=== PATIENT | female | born 1970 | race Caucasian/White ===

== ENCOUNTER 2021-02-14 19:39 | Emergency (ER) | payer MEDICAID, SELFPAY ==
[~2021-02-14] VITALS: Ht 137.2 cm; Wt 40.8 kg
--- NOTE | 2021-02-14 19:39 | NUR ---
Placed in room 06 . Placed on monitor tech, blood pressure machine and pulse oximeter. To gown for exam. Side rails up. Report given to LUBNA BRAXTON
--- NOTE | 2021-02-14 19:40 | NUR ---
ER Dr. Sanon at bedside examining patient.
--- NOTE | 2021-02-14 19:41 | NUR ---
Patient BIB by [facility] from home. C/O syncope x today. Per reported, patient had one episode of syncope after had bowel movement, her head hit the floor (possible). Patient present with pale, small laceration forehead, denies pain this time, A/O,X4, place patient on integration analyst and pulse ox.
[2021-02-14 19:49] VITALS: BP_SYST 186
[2021-02-14] MEDS ORDERED: LIP20 PO (19:53)
[2021-02-14] MEDS ORDERED: VITD2000 PO (19:53)
[2021-02-14] MEDS ORDERED: METO50TA7 PO (19:53)
[2021-02-14] MEDS ORDERED: CELE100C PO (19:53)
[2021-02-14] MEDS ORDERED: METF-518 PO (19:53)
[2021-02-14] MEDS ORDERED: DOCU100T10 PO (19:53)
[2021-02-14] MEDS ORDERED: OMEP20CA15 PO (19:53)
[2021-02-14] MEDS ORDERED: HYDR25TA4 PO (19:53)
[2021-02-14] MEDS ORDERED: SUCR1TAB78 PO (19:53)
--- NOTE | 2021-02-14 19:53 | NUR ---
Medication reconciliation completed with information provided by patient (patient came with her medications). Any prior medication reconciliation on file was reviewed and corrected.
--- NOTE | 2021-02-14 20:10 | NUR ---
Patient transported to radiology via gurney, accompanied by RT and EMT.
[2021-02-14 20:14] LABS: BASOPHILS % (AUTO) 0.3 % (0.0-2.0); EOSINOPHILS # (AUTO) 0.1 K/uL (0.0-0.4); EOSINOPHILS % (AUTO) 1.1 % (0.0-4.0); HEMATOCRIT 29.6 % (36-48); HEMOGLOBIN 9.4 g/dL (12.0-16.0); LYMPHOCYTES # (AUTO) 4.5 K/uL (1.0-5.5); LYMPHOCYTES % (AUTO) 34.6 % (20.5-51.5); MEAN CORPUSCULAR HEMOGLOBIN 26 pg (27-31); MEAN CORPUSCULAR HGB CONC 32 % (32-36); MEAN CORPUSCULAR VOLUME 82 fL (79.0-98.0); MONOCYTES # (AUTO) 0.5 K/uL (0.0-1.0); MONOCYTES % (AUTO) 3.8 % (1.7-9.3); NEUTROPHILS # (AUTO) 7.9 K/uL (1.8-7.7); NEUTROPHILS % (AUTO) 60.2 % (40.0-70.0); PLATELET COUNT (AUTO) 290 K/uL (130-430); RED BLOOD CELL COUNT(AUTO) 3.64 MIL/uL (4.2-6.2); RED CELL DISTRIBUTION WIDTH 14.5 % (9.0-15.0); WHITE BLOOD COUNT (AUTO) 13.1 K/uL (4.8-10.8)
--- NOTE | 2021-02-14 20:24 | NUR ---
Patient came back from CT scan via gurney with, RT and EMT.
[2021-02-14 20:39] LABS: CALCIUM 8.8 mg/dL (8.4-11.0); CREATININE 0.71 mg/dL (0.55-1.30); POTASSIUM 3.4 mmol/L (3.5-5.1)
[2021-02-14 20:47] LABS: ALBUMIN 3.5 g/dL (3.4-4.8); TOTAL BILIRUBIN 0.2 mg/dL (0.0-1.0)
--- NOTE | 2021-02-14 20:48 | NUR ---
Spoke with patient's family to update patient status.
[2021-02-14 20:55] LABS: PROTHROMBIN TIME 10.1 SECS (9.5-12.5)
--- NOTE | 2021-02-14 21:14 | NUR ---
Provided bedban as request for patient.
--- NOTE | 2021-02-14 21:20 | NUR ---
Blood for labwork drawn from [place] operator for second lactic. Patient tolerated well.
--- NOTE | 2021-02-14 21:41 | NUR ---
Dr. Sanon at bedside to explain for treatment plan.
--- NOTE | 2021-02-14 21:57 | NUR ---
Swabs COVID-19 and send to lab.
[2021-02-14] MEDS ORDERED: PIPERACILLIN/TAZO 3.38 GM in NS 50 ML IV ONE (22:00)
[2021-02-14] MEDS ORDERED: NACL 0.9% 1,000 ML IV ONE (22:00)
[2021-02-14] MEDS ORDERED: metroNIDAZOLE 500 mg/NS 100 ML IV ONE (22:00)
[2021-02-14] MEDS ORDERED: PIPERACILLIN/TAZOBACTAM 3.375 GM/VIAL (ZOSYN) IV ONE (22:05)
--- NOTE | 2021-02-14 23:24 | NUR ---
Provided bedpan as request and change new bed sheet.
--- NOTE | 2021-02-14 23:50 | NUR ---
Patient signs consent to transfer to [facility].
--- NOTE | 2021-02-15 00:01 | NUR ---
Called patient's family (her brother) to update patient's status.
--- NOTE | 2021-02-15 00:32 | NUR ---
Patient to be transferred to [facility] . Is being transferred due to higher level of care. Receiving facility has accepting physician and available space. ER physician has signed transfer form. Patient or responsible democrat has agreed to transfer and signed form. Patient belongings inventoried and will be sent with patient. Copy of nursing notes, lab reports, EKG, Physicians Orders and X-rays to be sent with patient. Report called to LUBNA Friend at receiving facility. Receiving physician is Dr. Maldonado. [facility] ambulance service has been called for transfer. ETA is 30 minutes.
[2021-02-15 00:45] VITALS: BP_SYST 154
--- NOTE | 2021-02-15 00:45 | NUR ---
Patient will transfer to [facility] via [facility] with RN/EMS.
== END 2021-02-15 00:45 | disposition short-term general hospital (02) ==
LOC: SED 19:39
DX: S09.90XA Unspecified injury of head, initial encounter (principal); R55 Syncope and collapse; K37 Unspecified appendicitis; K92.2 Gastrointestinal hemorrhage, unspecified; Z79.899 Other long term (current) drug therapy; Z20.822 Contact with and (suspected) exposure to COVID-19; W22.8XXA Striking against or struck by other objects, initial encounter; Y93.89 Activity, other specified; Y92.091 Bathroom in other non-institutional residence as the place of occurrence of the external cause; Y99.8 Other external cause status
CPT/HCPCS: 36415; 70450; 74176; 76376; 80053; 82150; 83605; 83690; 84484; 85025; 85610; 85730; 86886; 86900; 86901; 87426; 93005; 96365; 96368; 99285; J2543; J3490; J7030